=== PATIENT | male | born 1945 | race Caucasian/White ===

== ENCOUNTER 2019-03-28 11:50 | Emergency (ER) | payer MEDICARE, OTHER ==
--- NOTE | 2019-03-28 13:14 | ER Document Report ---
ED Medical Screen (RME) - General Chief Complaint: Abdominal Pain Stated Complaint: ABNORMAL LABS Time Seen by Provider: 03/28/19 13:08 Mode of Arrival: Wheelchair Information source: Patient Notes: Patient was sent here for evaluation for bilateral lower extremity leg wounds with weeping and shortness of breath that started yesterday. Patient states he said the leg wounds since 15 March. Patient denies any cough, chest pain nausea or vomiting. hx: Hypertension, depression I have greeted and performed a rapid initial assessment of this patient. A comprehensive ED assessment and evaluation of the patient, analysis of test results and completion of the medical decision making process will be conducted by additional ED providers. TRAVEL OUTSIDE OF THE [place] IN LAST 30 DAYS: No - Related Data Allergies/Adverse Reactions: hydrocodone Allergy (Verified 03/28/19 11:56) Penicillins Allergy (Verified 03/28/19 11:56) Past Medical History - Past Medical History Cardiac Medical History: Reports: Hx Hypertension Renal/ Medical History: Denies: Hx Peritoneal Dialysis Psychiatric Medical History: Reports: Hx Depression Physical Exam - Vital signs Vitals: Temp Pulse Resp BP Pulse Ox 98.3 F 111 H 16 185/97 H 94 03/28/19 12:01 03/28/19 12:01 03/28/19 12:03/28/19 12:01 03/28/19 12:01 - General Notes: Bilateral lower extremity oozing, weeping wounds - Respiratory Respiratory status: No respiratory distress Breath sounds: Normal Course - Vital Signs Vital signs: Temp Pulse Resp BP Pulse Ox 98.3 F 111 H 16 185/97 H 94 03/28/19 12:01 03/28/19 12:01 03/28/19 12:01 03/28/19 12:03/28/19 12:01
--- NOTE | 2019-03-28 13:50 | RADIOLOGY REPORT (SQ) ---
EXAM DESCRIPTION: CHEST 2 VIEWS COMPLETED DATE/TIME: 03/28/2019 1:41 pm REASON FOR STUDY: sob COMPARISON: None. EXAM PARAMETERS: NUMBER OF VIEWS: two views TECHNIQUE: Digital Frontal and Lateral radiographic views of the chest acquired. RADIATION DOSE: NA LIMITATIONS: none FINDINGS: LUNGS AND PLEURA: No opacities, masses or pneumothorax. No pleural effusion. MEDIASTINUM AND HILAR STRUCTURES: No masses or contour abnormalities. HEART AND VASCULAR STRUCTURES: Heart normal size. No evidence for failure. BONES: No acute findings. HARDWARE: Right humeral head surgical anchor. OTHER: The left hemidiaphragm is elevated. IMPRESSION: Elevation of the left hemidiaphragm. Otherwise unremarkable radiographic appearance of the chest. TECHNICAL DOCUMENTATION: JOB ID: [id number] [employer]- All Rights Reserved Reading location - IP/workstation name: [email or web address]
[2019-03-28 14:02] LABS: ABSOLUTE BASOPHILS # (AUTO) 0.1 10^3/uL (0.0-0.2); ABSOLUTE EOSINOPHILS # (AUTO) 0.3 10^3/uL (0.0-0.6); ABSOLUTE LYMPHOCYTES (AUTO) 1.7 10^3/uL (0.5-4.7); ABSOLUTE MONOCYTES (AUTO) 0.7 10^3/uL (0.1-1.4); HEMATOCRIT 33.6 % (37.9-51.0); HEMOGLOBIN 10.8 g/dL (13.5-17.0); MEAN CORPUSCULAR HEMOGLOBIN 27.5 pg (27.0-33.4); MEAN CORPUSCULAR VOLUME 86 fl (80-97); MONOCYTES % (AUTO) 7.8 % (3-13); PLATELET COUNT 330 10^3/uL (150-450); RED CELL DISTRIBUTION WIDTH 18.3 % (11.5-14.0); SEGMENTED NEUTROPHILS % (AUTO) 68.2 % (42-78); TOTAL CELLS COUNTED % (AUTO) 100 %; WHITE BLOOD COUNT 8.7 10^3/uL (4.0-10.5)
[2019-03-28 14:05] LABS: APPEARANCE,URINE CLEAR; BILIRUBIN,URINE NEGATIVE (NEGATIVE); COLOR,URINE YELLOW; GLUCOSE, URINE NEGATIVE (NEGATIVE); KETONES,URINE NEGATIVE (NEGATIVE); LEUKOCYTE ESTERASE,URINE TRACE (NEGATIVE); NITRITE,URINE NEGATIVE (NEGATIVE); PROTEIN,URINE 100 mg/dL (NEGATIVE); UROBILINOGEN,URINE NEGATIVE mg/dL (<2.0)
[2019-03-28 14:24] LABS: ALANINE AMINOTRANSFERASE 19 U/L (21-72); ALBUMIN 4.2 g/dL (3.5-5.0); ALKALINE PHOSPHATASE 89 U/L (38-126); ANION GAP 12 (5-19); ASPARTATE AMINO TRANSFERASE 30 U/L (17-59); BILIRUBIN,DIRECT 0.4 mg/dL (0.0-0.4); BILIRUBIN,TOTAL 0.5 mg/dL (0.2-1.3); BLOOD UREA NITROGEN 46 mg/dL (7-20); CALCIUM 9.5 mg/dL (8.4-10.2); CARBON DIOXIDE 28 mmol/L (22-30); CHLORIDE 100 mmol/L (98-107); CREATINE KINASE 107 U/L (55-170); GLUCOSE 112 mg/dL (75-110); POTASSIUM 5.7 mmol/L (3.6-5.0); TOTAL PROTEIN 8.1 g/dL (6.3-8.2)
[2019-03-28 14:48] LABS: NT PRO BNP 652 pg/mL (5-900)
[2019-03-28 14:49] LABS: TROPONIN I < 0.012 ng/mL
[2019-03-28] MEDS ORDERED: SODIUM BICARBONATE 8.4% INJ 50 MEQ/50 ML DISP.SYRIN IV ONE (16:55)
[2019-03-28] MEDS ORDERED: CALCIUM GLUCONATE 1000 MG/10 ML INJ IV ONE (16:55)
[2019-03-28] MEDS ORDERED: FUROSEMIDE INJ/PF 40 MG/4 ML SDV IV ONE (16:55)
[2019-03-28] MEDS ORDERED: OXYCODONE HCL IR 5 MG TABLET PO ONE (16:56)
[2019-03-28] MEDS ORDERED: DOXYCYCLINE HYCLATE 100 MG TABLET PO ONE (17:02)
--- NOTE | 2019-03-28 17:02 | ER Document Report ---
ED General - General Chief Complaint: Abdominal Pain Stated Complaint: ABNORMAL LABS Time Seen by Provider: 03/28/19 13:08 Primary Care Provider: DUONG RIVERA MD [Primary Care Provider] - Follow up in 3-5 days Mode of Arrival: Wheelchair Notes: Patient is a 73-year-old male that presents to the emergency department for chief complaint of lower extremity swelling, and elevated blood pressure. Patient states has been noticing worsening bilateral lower extremity few weeks, he has been following up with his primary care, but has not had any significant answers on how to treat this he is worried that it may be infected. He did see his assembler motor vehicle yesterday, and the increase his Lasix dramatically, up to 80 mg twice daily, he previously was on 40 mg every other day. He has a unilateral kidney, from prior nephrectomy, his baseline creatinine is around 3 according to the patient. He also notes his blood pressure has been more elevated at home. He states his pain related to his lower extremity swelling is a 9 out of 10, worse in the left leg compared to the right. He noticed weeping from what he thought were wounds on both the left and the right leg but worse on the left. He denies any associated chest pain, shortness of breath, difficulty breathing, nausea, vomiting or abdominal pain recently. Past Medical History: Hypertension, chronic low back pain, chronic kidney disease Past Surgical History: Nephrectomy Social History: Admits to smoking cigarettes, denies alcohol or drug use. Family History: Reviewed and noncontributory for presenting illness Allergies: Reviewed, see documented allergy list. REVIEW OF SYSTEMS: Other than noted above, the 12 point review of systems was reviewed with the patient and were negative, all pertinent findings are included in the HPI. PHYSICAL EXAMINATION: Vital signs reviewed, nursing noted reviewed. GENERAL: Elderly male, chronically ill-appearing. HEAD: Atraumatic, normocephalic. EYES: Eyes appear normal, extraocular movements intact, sclera anicteric, conjunctiva are normal. ENT: nares patent, oropharynx clear without exudates. Moist mucous membranes. NECK: Normal range of motion, supple without lymphadenopathy LUNGS: Breath sounds clear to auscultation bilaterally and equal. No wheezes rales or rhonchi. HEART: Regular rate and rhythm without murmurs ABDOMEN: Soft, nontender, normoactive bowel sounds. No rebound, guarding, or rigidity. No masses appreciated. EXTREMITIES: Bilateral lower extremity pitting edema to the proximal tibias, there is mild erythema noted associated with the edema, particular in the left, there is what appears to be a healing superficial wound where the skin did break open, there is more erythema and tenderness to palpation in this area in the left leg comments over the anterior haro. Patient has good cap refill distally in all toes, and there is palpable pedal pulses. Patient does have good range of motion of the knees and hips and ankles as well as the upper extremities. NEUROLOGICAL: No focal neurological deficits. Moves all extremities spontaneously Motor and sensory grossly intact on exam. PSYCH: Normal mood, normal affect. SKIN: Warm, Dry, normal turgor, no rashes or lesions noted on exposed skin TRAVEL OUTSIDE OF THE [place] IN LAST 30 DAYS: No - Related Data Allergies/Adverse Reactions: hydrocodone Allergy (Verified 03/28/19 11:56) Penicillins Allergy (Verified 03/28/19 11:56) Past Medical History - General Information source: Patient - Social History Smoking Status: Current Every Day Smoker Family History: Reviewed & Not Pertinent Patient has suicidal ideation: No Patient has homicidal ideation: No - Past Medical History Cardiac Medical History: Reports: Hx Hypertension Renal/ Medical History: Denies: Hx Peritoneal Dialysis Psychiatric Medical History: Reports: Hx Depression Physical Exam - Vital signs Vitals: Temp Pulse Resp BP Pulse Ox 98.3 F 111 H 16 185/97 H 94 03/28/19 12:01 03/28/19 12:01 03/28/19 12:01 03/28/19 12:01 03/28/19 12:01 Course - Re-evaluation Re-evalutation: Patient seen and examined vital signs reviewed. Laboratory data and/or imaging were ordered as appropriate for the patient's presenting symptoms and complaint, with consideration of any critical or life threatening conditions that may be associated with their obtained history and exam as noted above. Patient was treated with IV Lasix, calcium, and sodium bicarbonate, for mild hyperkalemia 5.7. Patient does have chronic kidney disease and his creatinine appears to be better than his baseline today, patient was started on high-dose Lasix, and he is advised to continue this, believe the patient's potassium will come down gradually, as he was recently just started on higher dose Lasix. Results were reviewed when available and demonstrated mild hyperkalemia, renal function seems to be at this patient's baseline. The patient was re-evaluated and was improved, I believe the patient does have a mild case of cellulitis, and will treat with doxycycline, is given the first dose in the ED, and prescribed a total of 7 days he is advised to follow-up with his primary care physician, as well as his assembler motor vehicle. Evaluation was most consistent with cellulitis of the left lower extremity, mild hyperkalemia. Results were discussed with the patient at this point, after careful consideration I feel that that patient can be discharged from the emergency department, the patient was educated treatments and reasons to return to the emergency department based on their presumed diagnosis as noted above, they were advised to followup with a primary care physician in 2-3 days. Patient was agreeable to plan of care. *Note is created using voice recognition software and may contain spelling, syntax or grammatical errors. Laboratory 03/28/19 03/28/19 03/28/19 13:42 13:42 13:42 WBC 8.7 RBC 3.90 L Hgb 10.8 L Hct 33.6 L MCV 86 MCH 27.5 MCHC 32.0 RDW 18.3 H Plt Count 330 Seg Neutrophils % 68.2 Lymphocytes % 20.0 Monocytes % 7.8 Eosinophils % 3.0 Basophils % 1.0 Absolute Neutrophils 6.0 Absolute Lymphocytes 1.7 Absolute Monocytes 0.7 Absolute Eosinophils 0.3 Absolute Basophils 0.1 Sodium 140.0 Potassium 5.7 H Chloride 100 Carbon Dioxide 28 Anion Gap 12 BUN 46 H Creatinine 2.70 H Est GFR ( Amer) 28 L Est GFR (Non-Af Amer) 23 L Glucose 112 H Calcium 9.5 Magnesium 2.3 Total Bilirubin 0.5 Direct Bilirubin 0.4 Neonat Total Bilirubin Not Reportable Neonat Direct Bilirubin Not Reportable Neonat Indirect Bili Not Reportable AST 30 ALT 19 L Alkaline Phosphatase 89 Creatine Kinase 107 CK-MB (CK-2) 1.90 Troponin I < 0.012 NT-Pro-B Natriuret Pep 652 Total Protein 8.1 Albumin 4.2 Urine Color Urine Appearance Urine pH Ur Specific [place] Urine Protein Urine Glucose (UA) Urine Ketones Urine Blood Urine Nitrite Urine Bilirubin Urine Urobilinogen Ur Leukocyte Esterase Urine WBC (Auto) Urine RBC (Auto) Squamous Epi Cells Auto Urine Mucus (Auto) Urine Ascorbic Acid 03/28/19 13:42 WBC RBC Hgb Hct MCV MCH MCHC RDW Plt Count Seg Neutrophils % Lymphocytes % Monocytes % Eosinophils % Basophils % Absolute Neutrophils Absolute Lymphocytes Absolute Monocytes Absolute Eosinophils Absolute Basophils Sodium Potassium Chloride Carbon Dioxide Anion Gap BUN Creatinine Est GFR ( Amer) Est GFR (Non-Af Amer) Glucose Calcium Magnesium Total Bilirubin Direct Bilirubin Neonat Total Bilirubin Neonat Direct Bilirubin Neonat Indirect Bili AST ALT Alkaline Phosphatase Creatine Kinase CK-MB (CK-2) Troponin I NT-Pro-B Natriuret Pep Total Protein Albumin Urine Color YELLOW Urine Appearance CLEAR Urine pH 6.0 Ur Specific [place] 1.010 Urine Protein 100 H Urine Glucose (UA) NEGATIVE Urine Ketones NEGATIVE Urine Blood NEGATIVE Urine Nitrite NEGATIVE Urine Bilirubin NEGATIVE Urine Urobilinogen NEGATIVE Ur Leukocyte Esterase TRACE H Urine WBC (Auto) 2 Urine RBC (Auto) 0 Squamous Epi Cells Auto <1 Urine Mucus (Auto) RARE Urine Ascorbic Acid 40 H Chest X-Ray 03/28/19 13:12 IMPRESSION: Elevation of the left hemidiaphragm. Otherwise unremarkable radiographic appearance of the chest. - Vital Signs Vital signs: Temp Pulse Resp BP Pulse Ox 98.3 F 111 H 20 193/96 H 98 03/28/19 12:01 03/28/19 12:01 03/28/19 17:41 03/28/19 17:41 03/28/19 17:41 - Laboratory Result Diagrams: 03/28/19 13:42 03/28/19 13:42 Laboratory results interpreted by me: 03/28/19 03/28/19 03/28/19 13:42 13:42 13:42 RBC 3.90 L Hgb 10.8 L Hct 33.6 L RDW 18.3 H Potassium 5.7 H BUN 46 H Creatinine 2.70 H Est GFR ( Amer) 28 L Est GFR (Non-Af Amer) 23 L Glucose 112 H ALT 19 L Urine Protein 100 H Ur Leukocyte Esterase TRACE H Urine Ascorbic Acid 40 H Discharge - Discharge Clinical Impression: Hyperkalemia, Leg edema Cellulitis Qualifiers: Site of cellulitis: extremity Site of cellulitis of extremity: lower extremity Laterality: left Qualified Code(s): L03.116 - Cellulitis of left lower limb Condition: Stable Disposition: HOME, SELF-CARE Instructions: Cellulitis ([facility]) Additional Instructions: Please complete the entire course of antibiotics as prescribed, keep your follow-up appointments as scheduled, continue taking the Lasix as prescribed by your assembler motor vehicle. Prescriptions: RX: Doxycycline Hyclate 100 mg PO BID #14 capsule Referrals: DUONG RIVERA MD [Primary Care Provider] - Follow up in 3-5 days
[2019-03-28 18:02] VITALS: BP 193/96
--- NOTE | 2019-03-28 23:16 | EKG REPORT ---
SEVERITY:- NORMAL ECG - SINUS RHYTHM : Confirmed by: Brian Benson 28-Mar-2019 23:15:33
== END 2019-03-28 18:10 | disposition home or self-care (01) ==
LOC: ER 11:50
DX: L03.116 Cellulitis of left lower limb (principal); I12.9 Hypertensive chronic kidney disease with stage 1 through stage 4 chronic kidney disease, or unspecified chronic kidney disease; N18.9 Chronic kidney disease, unspecified; R60.0 Localized edema; E87.5 Hyperkalemia; F17.210 Nicotine dependence, cigarettes, uncomplicated; Z79.899 Other long term (current) drug therapy; Z90.5 Acquired absence of kidney; Z88.5 Allergy status to narcotic agent; Z88.0 Allergy status to penicillin
CPT/HCPCS: 93005; 99284; 36415; 82553; 82550; 83735; 85025; 80053; 81001; 84484; 83880; 71046; 93010; J0610; A9270 ×2; J1940; J3490